=== PATIENT | female | born 1950 | race Caucasian/White ===

== ENCOUNTER 2017-08-14 15:55 | Inpatient (IN) | payer OTHER, MEDICARE ==
[~2017-08-14] VITALS: Ht 160 cm; Wt 65.3 kg
[~2017-08-14 15:55] MED LIST: ASPIRIN 81M81 MG/TA2 PO; PROLIA60 MG/ML SC; SYNTHROID0.088 MG/T PO
[2017-09-12] VITALS (10 sets, daily range): BP systolic 119–136; BP diastolic 58–71; PULSE 50–98; TEMP 97.4–98.1
[2017-09-12] MEDS ORDERED: OSTEO-BI-FLEX 21 TAB PO ×2 (08:13→08:14)
[2017-09-12] MEDS ORDERED: MULTI VITAMINS1 TAB PO (08:14)
[2017-09-12] MEDS ORDERED: OMEGA-3 1000 MG1 CAP PO (08:14)
[2017-09-12] MEDS ORDERED: CALCIUM 600MG+D1 TAB PO (08:15)
[2017-09-13 00:08] VITALS: BP 110/58; PULSE 75; TEMP 98.1
[2017-09-13 04:54] VITALS: BP 118/71; PULSE 91; TEMP 97.8
[2017-09-13 07:00] VITALS: BP 135/56; PULSE 70; TEMP 97.8
[2017-09-13 11:18] VITALS: BP 126/54; PULSE 76; TEMP 98.4
[2017-09-13 13:51] VITALS: BP 140/67; PULSE 75; TEMP 98.1
== END 2017-09-13 16:55 | disposition home or self-care (01) | DRG 748 ==
LOC: SURG 09-12 07:56 → INPTSU 09-12 07:56 → SURG 09-12 10:45
PROVIDERS: Urology
PROC: 0DNU4ZZ Release Omentum, Percutaneous Endoscopic Approach (ICD-10-PCS; 2017-09-12)
PROC: 8E0W4CZ Robotic Assisted Procedure of Trunk Region, Percutaneous Endoscopic Approach (ICD-10-PCS; 2017-09-12)
PROC: 0USG4ZZ Reposition Vagina, Percutaneous Endoscopic Approach (ICD-10-PCS; principal; 2017-09-12 10:45)
DX: N99.3 Prolapse of vaginal vault after hysterectomy (principal); N73.6 Female pelvic peritoneal adhesions (postinfective)
CPT/HCPCS: A4216; A4314; A9284; C1713; C1781; J0690; J1100; J1885; J2250; J2405; J2704; J2710; J3010; J7120

== ENCOUNTER → 2018-03-20 | Outpatient (CLI) | payer OTHER, MEDICARE ==
[~2018-03-20] MED LIST changes: +CALCIUM 600MG+D1 TAB PO; +MULTI VITAMINS1 TAB PO; +OMEGA-3 1000 MG1 CAP PO; +OSTEO-BI-FLEX 21 TAB PO
== END ==
LOC: COL.RAD 09:15
DX: M79.641 Pain in right hand (principal)
CPT/HCPCS: J3301; Q9967

== ENCOUNTER → 2018-06-20 | Outpatient (CLI) | payer OTHER | LOC: MC.RAD 08:11 | DX: Z12.31 Encounter for screening mammogram for malignant neoplasm of breast (principal) ==

== ENCOUNTER → 2018-12-21 | Outpatient (CLI) | payer BC | LOC: MC.RAD 10:24 | DX: N63.21 Unspecified lump in the left breast, upper outer quadrant (principal) | CPT/HCPCS: G0279 ==

== ENCOUNTER → 2019-03-12 | Outpatient (CLI) | payer BC | LOC: COL.RAD 03-05 08:45 | DX: M19.041 Primary osteoarthritis, right hand (principal) | CPT/HCPCS: J3301; Q9967 ==

== ENCOUNTER 2019-04-12 12:59 | Outpatient (CLI) | payer BC ==
[~2019-04-12] VITALS: Ht 160 cm; Wt 61.0 kg
[~2019-04-12 12:59] MED LIST changes: +SYNTHROID0.05 MG/TA PO; -SYNTHROID0.088 MG/T PO
[2019-04-12 13:19] VITALS: BP 112/57; PULSE 63; TEMP 97.9
== END 2019-04-12 14:10 | disposition home or self-care (01) ==
LOC: EUO 12:59
DX: M81.0 Age-related osteoporosis without current pathological fracture (principal)
CPT/HCPCS: J0897

== ENCOUNTER → 2019-07-18 | Outpatient (CLI) | payer BC | LOC: MC.RAD 08:24 | DX: Z12.31 Encounter for screening mammogram for malignant neoplasm of breast (principal) ==

== ENCOUNTER → 2020-07-21 | Outpatient (CLI) | payer BC | LOC: MC.RAD 09:35 | DX: Z12.31 Encounter for screening mammogram for malignant neoplasm of breast (principal) ==

== ENCOUNTER → 2021-08-30 | Outpatient (CLI) | payer MEDICARE, BC | LOC: MC.RAD 06:47 | DX: Z12.31 Encounter for screening mammogram for malignant neoplasm of breast (principal); N64.89 Other specified disorders of breast ==

== ENCOUNTER → 2021-09-02 | Outpatient (CLI) | payer MEDICARE, BC | LOC: MC.RAD 08:27 | DX: N60.02 Solitary cyst of left breast (principal) ==

== ENCOUNTER → 2022-09-23 | Outpatient (CLI) | payer MEDICARE, BC ==
[~2022-09-23] MED LIST changes: +LIPITOR 10MG10 MG PO; +MOBIC15 MG PO; +SYNTHROID0.075 MG/T PO
== END ==
LOC: MC.RAD 09:43
DX: Z12.31 Encounter for screening mammogram for malignant neoplasm of breast (principal)

== ENCOUNTER 2024-04-23 09:54 | Outpatient (CLI) | payer MEDICARE, BC ==
[~2024-04-23] VITALS: Ht 160 cm; Wt 60.3 kg
[2024-04-23 10:14] VITALS: BP 117/57; PULSE 82; TEMP 97.9
[2024-04-23] MEDS ORDERED: Denosumab 60 MG/ML SYRINGE SQ ONE (10:15)
--- NOTE | 2024-04-23 10:36 | NUR ---
PT TOLERATED INJECTION WELL. VS REMAINED WITHIN NORMAL LIMITS. PT AMBULATED TO [facility] UPON DISCHARGE. PT FREE FROM ACUTE CONCERNS AND COMPLAINTS.
== END 2024-04-23 10:36 | disposition home or self-care (01) ==
LOC: EUO 09:54
DX: M81.0 Age-related osteoporosis without current pathological fracture (principal)
CPT/HCPCS: J0897